=== PATIENT | male | born 1965 ===

== ENCOUNTER 2021-06-24 09:45 | Day surgery (SDC) | payer SELFPAY ==
[~2021-06-24] VITALS: Ht 182.9 cm; Wt 174.8 kg
[2021-06-24] MEDS ORDERED: COZAAR 50MG50 MG/TAB PO (10:42)
[2021-06-24] MEDS ORDERED: HYDRODIURIL50 MG PO (10:43)
[2021-06-24] MEDS ORDERED: ULTRAM 50MG TAB50 MG PO (10:44)
[2021-06-24] MEDS ORDERED: CALAN80 MG PO (10:44)
[2021-06-24] MEDS ORDERED: EFFE25TA PO (10:45)
[2021-06-24] MEDS ORDERED: NORCO 325 MG-51 TAB PO ×2 (10:46→12:05)
[2021-06-24 10:54] VITALS: BP 146/98; PULSE 98; TEMP 98.9
[2021-06-24 12:45] VITALS: BP 135/69; PULSE 81; TEMP 98.2
--- NOTE | 2021-06-24 12:45 | NUR ---
Patient returned to room. Sleeping, wakes easily to name. Postop vitals started. Sprite and crackers provided. Denies discomfort. brought to bedside.
[2021-06-24 13:00] VITALS: BP 127/69; PULSE 80
--- NOTE | 2021-06-24 13:00 | NUR ---
Patient semifowler in bed, alert and oriented. Denies discomfort. Tolerating food and drink well.
[2021-06-24 13:15] VITALS: BP 139/76; PULSE 89
--- NOTE | 2021-06-24 13:15 | NUR ---
Patient semifowler, alert and oriented. Denies discomfort. Tolerating food and drink well. Patient ambulated to bathroom with steady gait, able to void witout difficulty. Operative site clean, dry, no bleeding observed. O2 saturation on room air has returned to preop baseline, reported normal by patient.
--- NOTE | 2021-06-24 13:40 | NUR ---
Discontinued IV with no complications. Reviewed discharge instructions, patient and verbalized understanding. Instructed to dress and open door when ready for discharge.
--- NOTE | 2021-06-24 13:50 | NUR ---
Transported patient via wheelchair to personal vehicle accompanies by .
== END 2021-06-24 13:50 | disposition home or self-care (01) ==
LOC: SDCO 09:45
DX: K60.3 Anal fistula (principal); I10 Essential (primary) hypertension; G47.33 Obstructive sleep apnea (adult) (pediatric); G47.00 Insomnia, unspecified; Z91.19 Patient's noncompliance with other medical treatment and regimen; G89.29 Other chronic pain; Z20.822 Contact with and (suspected) exposure to COVID-19; Z79.899 Other long term (current) drug therapy; Z79.891 Long term (current) use of opiate analgesic
CPT/HCPCS: J0330; J2550; J2704; J3010; J7120

== ENCOUNTER → 2023-02-04 | Outpatient (CLI) | payer OTHER ==
[~2023-02-04] MED LIST: CALAN80 MG PO; COZAAR 50MG50 MG/TAB PO; EFFE25TA PO; HYDRODIURIL50 MG PO; NORCO 325 MG-51 TAB PO; ULTRAM 50MG TAB50 MG PO
== END ==
LOC: COL.RAD 10:01
DX: Z02.71 Encounter for disability determination (principal); M47.812 Spondylosis without myelopathy or radiculopathy, cervical region; M47.814 Spondylosis without myelopathy or radiculopathy, thoracic region; M47.816 Spondylosis without myelopathy or radiculopathy, lumbar region; M17.12 Unilateral primary osteoarthritis, left knee

== ENCOUNTER → 2023-08-10 | Outpatient (CLI) | payer MEDICARE | LOC: COL.RAD 07:48 | DX: I65.22 Occlusion and stenosis of left carotid artery (principal) ==